=== PATIENT | female | born 1935 | race Caucasian/White ===

== ENCOUNTER → 2019-05-13 | Outpatient (CLI) | payer MEDICARE ==
[~2019-05-13] MED LIST: REGADENOSON 0.4 MG/5 ML DISP.SYRIN. IV ONE
--- NOTE | 2019-05-13 14:37 | PCVCIMAG ---
APPROVED REPORT Study performed: 05/13/2019 12:07:44 EXAM: Comprehensive 2D, Doppler, and color-flow Echocardiogram Patient Location: Echo lab Room #: 2Status: routine BSA: 1.44 HR: 91 bpmBP: 142/80 mmHg Rhythm: NSR Other Information Study Quality: Good Risk Factors: Cardiac Risk Factors: HTN, Hyperlipidemia, Smoking Indications COPD Dyspnea 2D Dimensions IVSd: 12.10 (7-11mm)LVOT Diam: 21.04 (18-24mm) LVDd: 37.74 mm PWd: 9.72 (7-11mm)Ascending Ao: 30.19 (22-36mm) LVDs: 16.67 (25-40mm) Left Atrium: 28.99 (27-40mm) Aortic Root: 27.93 mm LV Single Plane 4CH: 58.95 % LV Single Plane 2CH: 70.12 % Biplane EF: 66.2 % Volumes Left Atrial Volume (Systole) Single Plane 4CH: 53.68 mLSingle Plane 2CH: 25.88 mL Biplane LA Volume: 38.00 mLLA ESV Index: 27.00 mL/m2 Aortic Valve AoV Peak Jovanny.: 1.49 m/s AO Peak Gr.: 9.32 mmHgLVOT Max P.87 mmHg LVOT Max V: 0.97 m/s CAROLANN Vmax: 2.28 cm2 Mitral Valve E/A Ratio: 0.6 MV Decel. Time: 237.01 ms MV E Max Jovanny.: 0.74 m/s MV A Jovanny.: 1.20 m/s IVRT: 100.35 ms TDI E/Lateral E': 14.80E/Medial E': 18.50 Medial E' Jovanny.: 0.04 m/s Lateral E' Jovanny.: 0.05 m/s Pulmonary Valve PV Peak Jovanny.: 0.90 m/sPV Peak Gr.: 3.27 mmHg Pulmonary Vein P Vein S: 0.63 m/sP Vein A: 0.41 m/s P Vein D: 0.33 m/sP Vein A Dur.: 103.8 msec P Vein S/D Ratio: 1.91 Tricuspid Valve TR Peak Jovanny.: 3.14 m/s TR Peak Gr.: 39.48 mmHg TV Vmax: 0.54 m/sPA Pressure: 46.00 mmHg Left Ventricle The left ventricle is normal size. There is normal LV segmental wall motion. Mild concentric left ventricular hypertrophy. Left ventricular systolic function is normal. The left ventricular ejection fraction is within the normal range. LVEF is 65-70%. Grade I - abnormal relaxation pattern. Findings suggest the left atrial pressure is elevated. Right Ventricle The right ventricle is normal size. The right ventricular systolic function is normal. Atria The left atrium size is normal. Right atrium is mildly dilated. Aortic Valve Aortic valve is trileaflet. Mild aortic valve sclerosis. No aortic regurgitation is present. There is no aortic valvular stenosis. Mitral Valve The mitral valve is normal in structure. There is no mitral valve regurgitation noted. No evidence of mitral valve stenosis. Tricuspid Valve The tricuspid valve is normal in structure. Mild to moderate tricuspid regurgitation with a PA pressure of 46 mmHg Moderate pulmonary hypertension.. Pulmonic Valve The pulmonary valve is normal in structure. There is no pulmonic valvular regurgitation. Great Vessels The aortic root is normal in size. Aortic arch is not well visualized. IVC is normal in size and collapses >50% with inspiration. Pericardium There is no pericardial effusion. There is no pleural effusion. <Conclusion> The left ventricle is normal size. Mild concentric left ventricular hypertrophy. Left ventricular systolic function is normal. Grade I - abnormal relaxation pattern. The right ventricle is normal size. The left atrium size is normal. Mild aortic valve sclerosis. There is no mitral valve regurgitation noted. Mild to moderate tricuspid regurgitation with a PA pressure of 46 mmHg
--- NOTE | 2019-05-15 12:26 | PCVCIMAG ---
APPROVED REPORT Imaging Protocol: Rest Tc-99m/Stress Tc-99m 1 day Study performed: 05/13/2019 13:47:50 Indication: Dyspnea, Chest discomfort Patient Location: Out-Patient Stress Nurse: Brittani Liang RN, Leeann Ortega RN [place] Tech:Mer Calverthardik [facility] Ht: 4 ft 10 in Wt: 122 lbs BSA: 1.48 m2 HR: 84 bpm BP: 190/90 mmHg BMI: 25.49 Rhythm: Normal Sinus Rhythm Medical History Medical History: HTN, Hyperlipidemia, COPD, Current Smoker Medications: Tomales, Lisinopril, Pravastatin, Temazepam Allergies: No known drug allergies Cardiac Risk Factors: Age Pretest Chest Pain Characteristics: No chest pain Exercise History: Sedentary Physical Disabilities: Severe productive cough Resting Data Rest SPECT myocardial perfusion imaging was performed in supine position 45 minutes following the intravenous injection of 9.9 mCi of Tc-99m Sestamibi. Time of rest injection: 1315 Date: 05/13/2019 Administration Route: IV Administration Site: Right AC Pharmacologic Stress Pharmacologic stress test was performed by injecting Regadenoson 0.4 mg IV push over 10-15 seconds immediately followed by the intravenous injection of 32.5 mCi of Tc-99m Sestamibi. Time of stress injection: 1445 Date: 05/13/2019 Administration Route: IV Administration Site: Right AC Gated Stress SPECT was performed 45 minutes after stress injection. The images were gated to evaluate regional wall motion and calculate left ventricular ejection fraction. Stress Test Details Stress Test: Pharmacologic stress testing performed using 0.4 mg of regadenoson per 5 mL given IV over 10 seconds. Reason for pharmacologic stress test: physical limitation, COPD. HRMax Heart Rate (APMHR): 139 bpm Resting HR: 84 bpmTarget HR (85% APMHR): 118 bpm Max HR Achieved: 117 bpm % of APMHR: 84 Recovery HR: 99 bpm BP Resting BP: 190/90 mmHg Max BP: 199/87 mmHg Recovery BP: 187/81 mmHg ECG Resting ECG: Normal Sinus Rhythm Stress ECG: Sinus Tachycardia ST Change: Non-ischemic Arrhythmia: None Recovery ECG: Sinus Tachycardia Clinical Reason for Termination: Completed protocol Stress Symptoms: Dyspnea Symptoms resolved with caffeine. Study Quality Study: Good Study Data Post stress, the left ventricular ejection was 85%.. SSS: 7 SRS: 2 SDS: 5 TID = 1.00. Perfusion There is a medium area of mildly reduced uptake in the basal and mid segment of the anterolateral wall which is seen on the stress images and improves on the resting images. This area thickens and moves normally and is most consistent with ischemia versus artifact. Wall Motion Normal left ventricular wall motion. Nuclear Conclusion ECG Findings: negative for ischemia Clinical Findings: non-diagnostic Nuclear Findings: positive for ischemia Exercise Capacity: not assessed Left Ventricular Function: normal This study reveals a mildly reversible defect in the mid and basal anterolateral segment, may represent attenuation but unable to rule out ischemia. There is normal global and segmental LV systolic function.
== END | disposition home or self-care (01) ==
LOC: PCVCIMAG 12:07
PROVIDERS: ATTEND Internal Medicine Cardiovascular Disease
DX: I08.2 Rheumatic disorders of both aortic and tricuspid valves (principal); E78.5 Hyperlipidemia, unspecified; I11.9 Hypertensive heart disease without heart failure; I27.20 Pulmonary hypertension, unspecified; J44.9 Chronic obstructive pulmonary disease, unspecified; F17.200 Nicotine dependence, unspecified, uncomplicated
CPT/HCPCS: 78452; 93017; 93306; A9500; J2785

== ENCOUNTER → 2019-05-15 | Outpatient (CLI) | payer MEDICARE | END | disposition home or self-care (01) | LOC: PCVCCLINIC 14:44 | PROVIDERS: ATTEND Internal Medicine Cardiovascular Disease | DX: R94.39 Abnormal result of other cardiovascular function study (principal); I10 Essential (primary) hypertension; R06.00 Dyspnea, unspecified; E78.00 Pure hypercholesterolemia, unspecified; F17.210 Nicotine dependence, cigarettes, uncomplicated | CPT/HCPCS: 93005; G0463 ==